=== PATIENT | male | born 1960 | race Caucasian/White ===

== ENCOUNTER → 2018-05-16 | Outpatient (CLI) | payer OTHER ==
[~2018-05-16] MED LIST: ADRENACLIC0.15 MG/0. IM; ADULT LOW DOSE81 MG PO; ALBUTEROL INHAL17 GM IH; ALBUTEROL2.5 MG/0.1 IH; AMLODIPINE BESY10 MG PO; AMOXICILLIN/POTASSIU PO; ASPIRIN81 M2 PO; AUGMENTIN 875875 MG PO; BENAZEPRIL HCL40 MG PO; BENAZEPRIL-HCT1 EA11 PO; COLACE100 MG PO; DALIRESP500 MCG PO; DIFLUCAN PO; FLAGYL500 MG PO; FLEXERIL PO; HYDROCHLOROTHIA25 M1 PO; HYDROCODONE-AP1 EAC6 PO; IBUPROFEN 200200 M1 PO; LEVAQUIN 500 M500 M2 PO; LEVAQUIN 500 M500 MG PO; LEVAQUIN PO; LOTREL 5-20 MG1 EACH PO; MECLIZINE HCL25 M1 PO; MUCINEX TA600 MG/TA1 PO; NAPROSYN500 MG PO; NICOTINE TRANSD21 M1 TD; NORCO 5-325 TA1 EACH PO; OMEPRAZOLE40 MG PO; PERCOCET 10-321 EACH PO; PERCOCET 5-3251 EACH PO; PERCOCET 7.5-31 EACH PO; PREDNISONE 10 M10 M1 PO; PROTONIX PO; PROTONIX40 M2 PO; SINGULAIR 10 MG10 M1 PO; SINGULAIR 10 MG10 MG PO; SYMBICORT; VISTARIL 25 MG25 M1 OR
[2018-05-16 08:46] LABS: ABSOLUTE BASOPHILS 0.1 thou/uL (0.0-0.2); ABSOLUTE LYMPHOCYTES 3.8 thou/uL (0.8-5.3); ABSOLUTE MONOCYTES 1.2 thou/uL (0.0-1.2); ABSOLUTE NEUTROPHILS 7.3 thou/uL (1.6-8.1); BASOPHILS 0.7 %; EOSINOPHILS 0.3 %; HEMATOCRIT 52.8 % (42.0-52.0); HEMOGLOBIN 17.9 gm/dL (14.0-18.0); LYMPHOCYTES 30.5 %; MCH 32.7 pg (26.0-34.0); MCHC 33.9 g/dL (28.0-37.0); MCV 96.2 fL (80.0-100.0); MONOCYTES 9.5 %; MPV 9.4 fl. (7.2-11.1); NUCLEATED RBCS 0 /100WBC; PLATELET COUNT* 199 thou/uL (150-400); RBC 5.49 mil/uL (4.50-6.00); RDW-CV 13.5 % (10.5-14.5); WBC 12.3 thou/uL (4.0-11.0)
[2018-05-16 09:02] LABS: ALBUMIN 4.1 g/dL (3.4-5.0); ALKALINE PHOSPHATASE 71 U/L (46-116); ANION GAP 7 mmol/L (7-16); BUN 13 mg/dL (7-18); CALCIUM 9.4 mg/dL (8.5-10.1); CHLORIDE 104 mmol/L (98-107); CHOLESTEROL 183 mg/dL (<200); CO2 30 mmol/L (21-32); CREATININE 1.2 mg/dL (0.6-1.3); GLUCOSE 104 mg/dL (70-99); HDL CHOLESTEROL 56 mg/dL (>40); LDL CHOLESTEROL 100 mg/dL (<100); POTASSIUM 4.1 mmol/L (3.5-5.1); SERUM ASSESSMENT Clear; SGOT 18 U/L (15-37); SGPT 23 U/L (30-65); SODIUM 141 mmol/L (136-145); TC:HDL 3.3 Ratio (Not establshd); TOTAL BILIRUBIN 1.1 mg/dL (<0.1-1.0); TOTAL PROTEIN 7.9 g/dL (6.4-8.2); TRIGLYCERIDE 135 mg/dL (<150); VLDL 27 mg/dL (<40)
[2018-05-17 02:08] LABS: GLYCOHEMOGLOBIN (HGB A1C) 5.3 % (4.8-5.6)
== END ==
LOC: M.LAB 08:29
PROVIDERS: Nurse Practitioner Family
DX: Z00.01 Encounter for general adult medical examination with abnormal findings (principal); I10 Essential (primary) hypertension; J18.9 Pneumonia, unspecified organism; N40.1 Benign prostatic hyperplasia with lower urinary tract symptoms; J44.1 Chronic obstructive pulmonary disease with (acute) exacerbation; J30.1 Allergic rhinitis due to pollen; R53.83 Other fatigue; R79.89 Other specified abnormal findings of blood chemistry; Z87.891 Personal history of nicotine dependence

== ENCOUNTER → 2018-11-07 | Outpatient (CLI) | payer OTHER ==
--- NOTE | 2018-11-07 12:49 | CARDNUC ---
[place] [address] CARDIAC NUCLEAR IMAGING REPORT Name: ANNMARIE MUNIZ Room: [facility]#: [id number] Admission: 11/07/18 Attend Phys: Marco A Hogan MD Discharge: Date of : 56 Date of Service: 11/07/18 1248 Report #: [id number] THIS REPORT FOR: //name// APPROVED REPORT Imaging Protocol: Rest Tc-99m/Stress Tc-99m 1 day Study performed: 11/07/2018 08:15:00 Indication: Abnormal EKG, Chest pain, Dyspnea Patient Location: Out-Patient Stress Tech: Sol Golden Stress Nurse: Bhavana Levy RN NM Tech:FAUSTINO Richmond Ht: 6 ft 2 in Wt: 246 lbs BSA: 2.37 m2 BMI: 31.58 Medical History Medical History: copd, hypertension, mi Medications: no cardiac meds Allergies: nkda Cardiac Risk Factors: age, hyperension, family hx Exercise History: Physically active Resting Data Rest SPECT myocardial perfusion imaging was performed in supine position 30 minutes following the intravenous injection of 11.0 mCi of Tc-99m Sestamibi. Time of rest injection: 819 Date: 11/07/2018 Time of rest imagin The images were gated to evaluate regional wall motion and calculate left ventricular ejection fraction. Administration Route: IV Administration Site: Left AC Pharmacologic Stress Pharmacologic stress test was performed by injecting Regadenoson 0.4 mg IV push over 10-15 seconds immediately followed by the intravenous injection of 34.0 mCi of Tc-99m Sestamibi. Time of stress injection: 0940 Time of stress imagin Administration Route: [place] [address] CARDIAC NUCLEAR IMAGING REPORT Name: ANNMARIE MUNIZ Room: [facility]#: [id number] Admission: 11/07/18 Attend Phys: Marco A Hogan MD Discharge: Date of : 56 Date of Service: 11/07/18 1248 Report #: [id number] Administration Site: Left AC Gated Stress SPECT was performed 40 minutes after stress injection. The images were gated to evaluate regional wall motion and calculate left ventricular ejection fraction. Prone imaging was performed. Stress Test Details Stress Test: Pharmacologic stress was paired with low level exercise. Reason for pharmacologic stress test: physical limitation. HR Max Heart Rate (APMHR): 160 bpm Resting HR: 66 bpm Target HR (85% APMHR): 136 bpm Max HR Achieved: 106 bpm % of APMHR: 66 Recovery HR: 77 bpm BP Resting BP: 140/99 mmHg Max BP: 211/94 mmHg Recovery BP: 153/84 mmHg ECG Resting ECG: Sinus Rhythm Stress ECG: Sinus Rhythm ST Change: None Arrhythmia: None Recovery ECG: Sinus Rhythm Recovery ST Change: None Recovery Arrhythmia: None Clinical Reason for Termination: Completed protocol Exercise duration: 0 min sec Exercise capacity: 1 METs The patient tolerated Lexiscan infusion without significant symptoms. Nurse Comments pt has bad hip and cannot exercise on the treadmill Stress ECG Conclusion Baseline 12-lead EKG showed sinus rhythm with no significant ST or T-wave abnormalities. EKGs obtained during and post Lexiscan infusion showed no significant ST or T wave changes when compared to baseline. There were no significant [place] [address] CARDIAC NUCLEAR IMAGING REPORT Name: ANNMARIE MUNIZ Room: [facility]#: [id number] Admission: 11/07/18 Attend Phys: Marco A Hogan MD Discharge: Date of : 56 Date of Service: 11/07/18 1248 Report #: [id number] Study Quality Study: Good Artifact: No artifact Study Data At rest, the left ventricular ejection fraction was 70%.. Post stress, the left ventricular ejection was 62%.. TID = 0.96. Perfusion There is a small in size severe intensity fixed defect noted in the basal portion of inferior wall. No other significant fixed or reversible defects are identified. Wall Motion The basal portion of the inferior wall is akinetic. The wall motion abnormalities were noted. 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 There were no reversible defects to suggest ongoing ischemia. Global LV systolic function is preserved. This is not a high risk study. <Conclusion> Baseline 12-lead EKG showed sinus rhythm with no significant ST or T-wave abnormalities. EKGs obtained during and post Lexiscan infusion showed no significant ST or T wave changes when compared to baseline. There were no significant stress-induced arrhythmias. <ELECTRONICALLY SIGNED> By: Mich Nicole MD, FACC 11/07/18 1248 1248 1248 Mich Nicole MD, FACC /INF
== END ==
LOC: M.NUC 10-20 16:10
DX: R94.31 Abnormal electrocardiogram [ECG] [EKG] (principal)

== ENCOUNTER 2018-11-28 08:39 | Observation (INO) | payer OTHER ==
[~2018-11-28] VITALS: Ht 185.4 cm; Wt 108.9 kg
[2018-11-28] VITALS (14 sets, daily range): BP systolic 149–188; BP diastolic 65–89
--- NOTE | ~2018-11-28 | H ---
[address] [address] HISTORY AND PHYSICAL Name: ANNMARIE MUNIZ Room: [address] M.RBlanca#: [id number] Admission: 11/28/18 Attend Phys: Marco A Hogan MD, F Discharge: 11/29/18 Date of : 56 Report #: [id number] THIS REPORT FOR: //name// Please refer to the History and Physical performed in the physician's office. By: 1058Medical Records Staff JOHNNIE /LIVIER
[~2018-11-28 08:39] MED LIST changes: -ALBUTEROL INHAL17 GM IH; +ALBUTEROL PO; +ASPIR 8181 MG PO; +COZAAR 50 MG TA50 M1 PO; +SPIRIVA INH; +SYMBICORT160 MCG/4. INH
[2018-11-28 09:23] LABS: HEMATOCRIT 44.1 % (42.0-52.0); HEMOGLOBIN 15.3 gm/dL (14.0-18.0); MCH 32.6 pg (26.0-34.0); MCHC 34.6 g/dL (28.0-37.0); MCV 94.2 fL (80.0-100.0); MPV 9.8 fl. (7.2-11.1); RBC 4.69 mil/uL (4.50-6.00); RDW-CV 13.4 % (10.5-14.5); WBC 10.8 thou/uL (4.0-11.0)
[2018-11-28 09:28] LABS: ANION GAP 11 mmol/L (7-16); BUN 10 mg/dL (7-18); CALCIUM 9.1 mg/dL (8.5-10.1); CHLORIDE 102 mmol/L (98-107); CO2 27 mmol/L (21-32); CREATININE 1.3 mg/dL (0.6-1.3); GLUCOSE 90 mg/dL (70-99); POTASSIUM 3.7 mmol/L (3.5-5.1); SODIUM 140 mmol/L (136-145)
[2018-11-28 09:29] LABS: APTT 29.5 Seconds (25.0-31.3); PROTIME 10.4 Seconds (9.20-11.50)
[2018-11-28 09:33] LABS: ALKALINE PHOSPHATASE 78 U/L (46-116); CHOLESTEROL 176 mg/dL (<200); HDL CHOLESTEROL 61 mg/dL (>40); LDL CHOLESTEROL 93 mg/dL (<100); SERUM ASSESSMENT Clear; SGOT 16 U/L (15-37); SGPT 26 U/L (30-65); TC:HDL 2.9 Ratio (Not establshd); TOTAL BILIRUBIN 0.7 mg/dL (<0.1-1.0); TOTAL PROTEIN 7.7 g/dL (6.4-8.2); TRIGLYCERIDE 113 mg/dL (<150); VLDL 23 mg/dL (<40)
--- NOTE | 2018-11-28 14:45 | NUR ---
PT TO ROOM 205 VIA CART. PT UP IN ROOM WITH STEADY GAIT. NO BLEEDING OR HEMATOMA OBSERVED AT RIGHT RADIAL CATH SITE. CALL LIGHT WITHIN REACH. IVF INFUSING
--- NOTE | 2018-11-28 14:53 | CARD ---
[address] [address] CARDIAC CATH REPORT Name: ANNMARIE MUNIZ Room: [address] Lb#: [id number] Admission: 11/28/18 Attend Phys: Marco A Hogan MD, F Discharge: Date of : 56 Report #: [id number] THIS REPORT FOR: //name// APPROVED REPORT Study performed: 11/28/2018 09:54:55 Patient Details Patient Status: Out-Patient Room #: The patient is a 58 year-old male Event Personnel Marco A Hogan Dot Net Developer, Kiersten Franklin RN Cabin Worker, Cortney Langley Monitor, Benedict Teague Scrub Procedures Performed NIKUNJ Place w/wo Plasty Single LAD , PTCA Single Vessel DIAG Indication Atypical chest pain , Positive stress test Risk Factors Arterial Hypertension, Tobacco History () Admission/Lab Medications/Medications given during procedure Glycoprotein IllbIlla Inhibitors, Heparin Unfract. Procedure Narrative The patient was brought electively to the Cardiac Catheterization Laboratory and was prepped and draped in a sterile manner. The right wrist was infiltrated with 1% Lidocaine subcutaneous anesthesia. A Slender Glidesheath sheath was inserted into the right radial artery. Coronary angiography was performed using coronary diagnostic catheters. The right coronary system was accessed and visualized with a Diagnostic JR4 catheter. The left coronary system was accessed and visualized with a Diagnostic JL4 catheter. The left ventricle was accessed and visualized with a Diagnostic Angled Pig catheter. Left ventricular/Aortic Valve gradient assessed via catheter pullback. Left ventriculogram was performed in SALAS projection. Closure device was deployed with a 6 Fr Vasc-Band Lng 27cm. The patient tolerated the procedure well and there were no complications associated with the procedure. [place] [address] CARDIAC CATH REPORT Name: ANNMARIE MUNIZ Room: [address] M.R.#: [id number] Admission: 11/28/18 Attend Phys: Marco A Hogan MD, F Discharge: Date of : 56 Report #: [id number] Intraoperative Conscious Sedation Sedation start time: 10:45 Case end Time: 11:38 Fentanyl 25 mcg Versed 3 mg Fluoro Time: 5.8 minutes Dose: DAP 21802 cGycm2 1570 mGy Contrast Type and Amount: Visipaque 190 ml Coronary Angiography The patient's coronary anatomy is right dominant. Diagnostic Cath Left Main 0% stenosis LAD 70% proximal, and 50% mid stenosis noted Diagonal 1 50% ostial and 50% mid stenosis noted OM1 50% mid stenosis noted Right Coronary chronically occluded proximally and filled by collaterals Left Ventriculography The left ventricular ejection fraction is estimated to be 50-55%. Left ventricular wall motion abnormalities are present. There is no mitral insufficiency. akinesis noted of base of inferior wall Hemodynamics The aortic pressure is 134/77 mmHg with a mean of 101 mmHg. The left ventricular pressure is 161/10 mmHg with a mean of mmHg. The left ventricular end diastolic pressure is 20 mmHg. There was no gradient across the aortic valve upon pullback. Pullback from the left ventricle to the aorta revealed no gradient across the aortic valve. PCI Technique Lesion Anticoagulation was achieved with Heparin. bolus of iv aggrastat given Percutaneous coronary intervention was performed on the proximal left anterior descending artery segment. The lesion stenosis prior to intervention was 70% with LUPIS 3 flow. A 6F XB LAD 3.5 Guide Catheter was used to engage the ostium. A BMW 190cm Interventional Guidewire was used to cross the lesion. STENT DEPLOYMENT A drug-eluting stent Xience Sherrie 2.63U07tg was inserted and inflated up to 8.00atm for 13seconds. Repeat angiography revealed the following post-stent deployment results: 0% [place] [address] CARDIAC CATH REPORT Name: ANNMARIE MUNIZ Room: [address]#: [id number] Admission: 11/28/18 Attend Phys: Marco A Hogan MD, F Discharge: Date of : 56 Report #: [id number] Inflation: 16.00atm for 15seconds. Additional Inflation: 19.00atm for 13seconds. After primary stenting of the proximal lad, the 50% stenosis of the ostium of the first diagonal branch whose ostium was covered by the stent, was noted to be 80% narrowed secondary to plaque shift. Final angiography reveals 0 % stenosis with LUPIS 3 flow. PCI Technique Lesion 2 Percutaneous Coronary Intervention was performed on the first diagnonal branch segment. Percutaneous coronary intervention was performed on the first diagonal branch segment. The lesion stenosis prior to intervention was 80% with LUPIS 3 flow. A xblad3.5 Guide Catheter was used to engage the lm ostium. A BMW 190cm Interventional Guidewire was used to cross the lesion. Balloon Dilation A Balloon catheter Trek RX 2.25 X 8 was inserted and inflated up to 12.00atm for 12seconds. Repeat angiography revealed the following post-dilatation results: 30% stenosis. Additional Inflation: 16.00atm for 10seconds. Additional Inflation: 20.00atm for 10seconds. Final angiography reveals 30 % stenosis with LUPIS 3 flow. Conclusion 1. 70% proximal stenosis of the lad 2. chronic occlusion of the rca that filled by collaterals 3. left ventricular efection fraction of 50-55% 4. successful placement of a drug eluting stent in the proximal lad 5. following stenting there was plaque shift into the first diagonal branch treated by PTCA of the diagonal ostium by placing the balloon through a stent strut into the diagonal artery Recommendations Cardiac Rehabilitation Referral Aggressive Medical Therapy Medications Administered Clopidogrel <ELECTRONICALLY SIGNED> By: Marco A Hogan MD, [facility] 11/28/18 1453 1453 1453Davicalvin Hogan MD, FAC /INF
--- NOTE | 2018-11-28 16:29 | EKG ---
[place] [address] ELECTROCARDIOGRAM REPORT Name: ANNMARIE MUNIZ Room: [address] M.R.#: [id number] Admission: 11/28/18 Attend Phys: Marco A Hogan MD, F Discharge: Date of : 56 Report #: [id number] THIS REPORT FOR: //name// [facility] Test Date: 2018-11-28 Test Time: 09:09:20 Pat Name: ANNMARIE MUNIZ Department: Room: [facility] Gender: M Ob Gyn: : 1960 Requested By: Marco A Hogan Order Number: [id number] Kiran MD: Marco A Hogan Measurements Intervals [place] Rate: 71 P: 26 NE: 150 QRS: 17 QRSD: 98 T: 21 QT: 389 QTc: 423 Interpretive Statements Sinus rhythm Atrial premature complex Inferior infarct, old Compared to ECG 07/29/2015 16:11:25 Atrial premature complex(es) now present Sinus bradycardia no longer present Electronically Signed On 11-28-2018 16:29:46 HEAD GOLF PROFESSIONAL by Marco A Hogan [email or web address] <ELECTRONICALLY SIGNED> By: Marco A Hogan MD, FACC 11/28/18 1629 0909 0909 Marco A Hogan MD, [facility] /EPI
[2018-11-29] VITALS: BP 118/76
--- NOTE | 2018-11-29 00:30 | NUR ---
PM ASSESSMENT COMPLETED, REFER TO CHARTING. VSS. TRACING SR WITH 1ST DEGREE ON MONITOR. PT IS UP ADLIB, STEADY GAIT. DENIES PAIN. PT CAN BE IRRITABLE AT TIMES. IVF INFUSING ORDERED. HOURLY ROUNDING FOR PT SAFETY. CLWR.
[2018-11-29 04:00] VITALS: BP 142/80
[2018-11-29 04:50] LABS: HEMOGLOBIN 14.2 gm/dL (14.0-18.0); MCH 32.5 pg (26.0-34.0); MCHC 34.7 g/dL (28.0-37.0); MCV 93.8 fL (80.0-100.0); MPV 9.8 fl. (7.2-11.1); RBC 4.37 mil/uL (4.50-6.00); RDW-CV 13.2 % (10.5-14.5); WBC 9.1 thou/uL (4.0-11.0)
[2018-11-29 04:58] LABS: CALCIUM 8.6 mg/dL (8.5-10.1); CREATININE 1.1 mg/dL (0.6-1.3)
[2018-11-29 08:20] VITALS: BP 144/75
[2018-11-29] MEDS ORDERED: NITROSTAT0.4 MG SUBLING (09:44)
[2018-11-29] MEDS ORDERED: PLAVIX 75 MG TA75 M1 PO (09:48)
--- NOTE | 2018-11-29 10:07 | NUR ---
ASSUMED CARE OF PT THIS AM AROUND 0715- BATT PACKER IN PLACE ORDERED, TRACING SR- PT A&O X4- AND ANXIOUS TO BE D/C'D THIS AM- RIGHT WRIST C/D/I WITH BAND-AIDE TO SITE WITH NO HEMATOMA NOTED- PT DENIES ANY C/O PAIN/DISCOMFORT- CARDIOLOGY HERE TO ASSESS WITH ORDERS NOTED FOR OKAY TO D/C HOME THIS SHIFT- IV TO RIGHT FA D/C'D ALONG WITH BATT PACKER PRIOR TO D/C- D/C EDUCATION/TEACHING GIVEN TO PT PRIOR TO D/C WITH ALL QUESTIONS AND CONCERNS ADDRESSED- WRITTEN EDUCATION ALONG WITH PRESCRIPTIONS PROVIDED TO PT PRIOR TO D/C- BELONGINGS PACKED AND ACCOUNTED FOR PER PT- PT ESCORTED PER TECH VIA AMBULATION TO VEHICLE AT 1005 WITH BELONGINGS- NO PROBLEMS NOTED AT TIME OF D/C
--- NOTE | 2018-12-01 10:57 | EKG ---
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 : 1960 Requested By: Marco A Hogan Order Number: [id number] Kiran MD: Bsuter Hanson Measurements Intervals [place] Rate: 67 P: 40 PA: 153 QRS: 29 QRSD: 101 T: 24 QT: 391 QTc: 413 Interpretive Statements Sinus rhythm Multiple premature complexes, supraventricular Probable inferior infarct, old Electronically Signed On 12-01-2018 10:57:33 BARREL LINE OPERATOR by Buster Hanson [email or web address] <ELECTRONICALLY SIGNED> By: Buster Hanson MD, [facility] 12/01/18 1057 1418 1418 Buster Hanson MD, FACC /EPI
--- NOTE | 2018-12-01 11:00 | EKG ---
[place] [address] ELECTROCARDIOGRAM REPORT Name: ANNMARIE MUNIZ Room: [address] M.R.#: [id number] Admission: 11/28/18 Attend Phys: Marco A Hogan MD, F Discharge: 11/29/18 Date of : 56 Report #: [id number] THIS REPORT FOR: //name// [facility] Test Date: 2018-11-29 Test Time: 08:03:21 Pat Name: ANNMARIE MUNIZ Department: Room: [address] Gender: M Partnership Development Manager: : 1960 Requested By: Marco A Hogan Order Number: [id number] Kiran MD: Buster Hanson Measurements Intervals [place] Rate: 58 P: 44 CT: 149 QRS: 29 QRSD: 101 T: 25 QT: 406 QTc: 399 Interpretive Statements Sinus rhythm Multiple supraventricular premature complexes Probable inferior infarct, old Compared to ECG 11/28/2018 09:09:20 Atrial premature complex(es) persist Myocardial infarct finding still present Electronically Signed On 12-01-2018 11:00:08 MARKETING PRODUCTION MANAGER by Buster Hanson [email or web address] <ELECTRONICALLY SIGNED> By: Buster Hanson MD, FAC 12/01/18 1100 0803 0803 Buster Hanson MD, [facility] /EPI
--- NOTE | 2018-12-03 13:35 | D ---
[address] [address] DISCHARGE SUMMARY Name: ANNMARIE MUNIZ Room: [address] Jessica Asher#: [id number] Admission: 11/28/18 Attend Phys: Marco A Hogan MD, F Discharge: 11/29/18 Date of : 56 Report #: [id number] THIS REPORT FOR: //name// CC: Marco A Miller DO DATE OF SERVICE: 11/29/2018 DISCHARGE DIAGNOSES: 1. Angina pectoris. 2. Coronary artery disease. 3. Hypertension. 4. Tobacco abuse. CONSULTANTS: None. PROCEDURES: Left heart catheterization with placement of a single drug-eluting stent in the proximal left anterior descending artery followed by balloon angioplasty of the diagonal branch via the radial approach. HISTORY OF PRESENT ILLNESS: The patient is a 58-year-old white male who was brought to the outpatient department to undergo cardiac catheterization. The patient recently complained of chest pain, it is a constant pain. It is not related to exertion or meals. He denied any trauma to his chest. It is not related to food. He does note exertional dyspnea, but denies any syncope. I saw him in the clinic in October, eh was noted to have an abnormal ECG. He underwent a nuclear stress test that showed evidence of previous infarction consistent with a scar, but no significant ischemia. Because of his complaints of chest pain and abnormal Cardiolite, I recommended cardiac catheterization. Ejection fraction by nuclear stress test was 62%. PAST MEDICAL HISTORY: He has had no significant surgical procedures. He does have a history of hypertension and previous tobacco abuse. MEDICATIONS: On admission included albuterol inhaler, omeprazole and aspirin a day. PHYSICAL EXAMINATION: GENERAL: Middle-aged male. VITAL SIGNS: Blood pressure 140/70, pulse 60. CHEST: Clear to auscultation. CARDIAC: Regular rate and rhythm. ABDOMEN: Soft. EXTREMITIES: No edema. SKIN: [place] [address] DISCHARGE SUMMARY Name: ANNMARIE MUNIZ Room: [address]#: [id number] Admission: 11/28/18 Attend Phys: Marco A Hogan MD, F Discharge: 11/29/18 Date of : 56 Report #: [id number] NEUROLOGIC: Nonfocal. ECG showed evidence of previous inferior infarction. LABORATORY DATA: Previous lab work included cholesterol 185, triglyceride 135, HDL 45, hemoglobin 19. HOSPITAL COURSE: The patient was brought to the outpatient department. I performed cardiac catheterization from the right radial artery. Left ventriculogram showed akinesis of the base of the inferior wall with an estimated ejection fraction of 50-55%. He was noted to have a 70% narrowing of the proximal LAD at the takeoff of the first diagonal branch. The right coronary artery appeared chronically occluded, filled by collaterals. He was given heparin. I then placed a single drug-eluting stent in the proximal LAD. After placing the stent there appeared to be compromise of the ostium of the diagonal branch that now arose from within the stent. I performed balloon angioplasty of the ostium. He tolerated the procedure well. He was loaded with Plavix. Fortunately, he had no further chest pain, arrhythmias or heart failure. The patient remained in sinus rhythm. Lab work included a creatinine of 1.1, potassium was 4.0. His cholesterol was 176, triglyceride 113, HDL 61, LDL 93. The following day, his white blood cell count was 9.1, hemoglobin 14.2, and there was no drop in platelet count. The patient was discharged the following day on his home medications including albuterol inhaler, omeprazole, and Spiriva inhaler. He was started on aspirin 81 mg a day, Plavix 75 mg a day, Lipitor 40 mg a day and he was given nitroglycerin to take as needed for chest pain. He was discharged to return to care of Dr. Miller for routine medical care. I did recommend he start an exercise program, maintain a low-fat diet. He was scheduled to return to see me in the Cardiology Clinic in 6 weeks for followup. At the time of discharge, there was no significant hematoma in the right wrist. <ELECTRONICALLY SIGNED> By: Marco A Hogan MD, FACC 12/03/18 1335 1241 1302Dedin Hogan MD, FACC /nt
== END 2018-11-29 10:05 | disposition home or self-care (01) ==
LOC: M.CL 08:39 → M.TBA-CV 14:15 → M.2W 14:36
PROVIDERS: ADMIT Internal Medicine Cardiovascular Disease
DX: I25.119 Atherosclerotic heart disease of native coronary artery with unspecified angina pectoris (principal); I10 Essential (primary) hypertension; F17.201 Nicotine dependence, unspecified, in remission; R94.31 Abnormal electrocardiogram [ECG] [EKG]; Z79.899 Other long term (current) drug therapy

== ENCOUNTER 2019-01-12 13:21 | Inpatient (IN) | payer OTHER ==
[~2019-01-12] VITALS: Ht 185.4 cm; Wt 107.0 kg
[~2019-01-12 13:21] MED LIST changes: +NITROSTAT0.4 MG SUBLING; +PLAVIX 75 MG TA75 M1 PO
[2019-01-12 13:30] VITALS: BP 230/121
[2019-01-12 14:27] LABS: ABSOLUTE BASOPHILS 0.1 thou/uL (0.0-0.2); ABSOLUTE EOSINOPHILS 0.2 thou/uL (0.0-0.7); ABSOLUTE LYMPHOCYTES 2.5 thou/uL (0.8-5.3); ABSOLUTE MONOCYTES 0.9 thou/uL (0.0-1.2); BASOPHILS 1.2 %; EOSINOPHILS 1.8 %; HEMATOCRIT 46.3 % (42.0-52.0); HEMOGLOBIN 15.9 gm/dL (14.0-18.0); LYMPHOCYTES 25.9 %; MCH 32.8 pg (26.0-34.0); MCHC 34.3 g/dL (28.0-37.0); MCV 95.6 fL (80.0-100.0); MONOCYTES 9.7 %; MPV 9.8 fl. (7.2-11.1); NUCLEATED RBCS 0 /100WBC; PLATELET COUNT* 168 thou/uL (150-400); POLYS 61.4 %; RBC 4.84 mil/uL (4.50-6.00); RDW-CV 13.6 % (10.5-14.5); WBC 9.8 thou/uL (4.0-11.0)
[2019-01-12 14:35] LABS: PROTIME 10.6 Seconds (9.20-11.50)
[2019-01-12 14:43] LABS: ANION GAP 10 mmol/L (7-16); BUN 6 mg/dL (7-18); CALCIUM 8.9 mg/dL (8.5-10.1); CHLORIDE 106 mmol/L (98-107); CO2 27 mmol/L (21-32); CREATININE 1.1 mg/dL (0.6-1.3); GLUCOSE 106 mg/dL (70-99); POTASSIUM 3.9 mmol/L (3.5-5.1); SODIUM 143 mmol/L (136-145); TROPONIN-I LEVEL <0.06 ng/mL (<0.06)
[2019-01-12 14:46] LABS: ALBUMIN 3.7 g/dL (3.4-5.0); ALKALINE PHOSPHATASE 67 U/L (46-116); LIPASE 61 U/L (73-393); NT-PRO BRAIN NAT PEPTIDE 216 pg/mL (<300); SGOT 14 U/L (15-37); SGPT 22 U/L (30-65); TOTAL BILIRUBIN 0.6 mg/dL (<0.1-1.0); TOTAL PROTEIN 7.3 g/dL (6.4-8.2)
[2019-01-12 20:07] VITALS: BP 146/83
[2019-01-12 20:20] VITALS: BP 161/88
[2019-01-13] VITALS: BP 139/83
[2019-01-13 04:00] VITALS: BP 125/65
[2019-01-13 08:10] VITALS: BP 140/82
--- NOTE | 2019-01-13 10:04 | EKG ---
[place] [address] ELECTROCARDIOGRAM REPORT Name: ANNMARIE MUNIZ Room: [address] ADM IN .R.#: [id number] Admission: 01/12/19 Attend Phys: Mihir Alvarez MD Discharge: Date of : 56 Report #: [id number] THIS REPORT FOR: //name// [facility] ED Test Date: 2019-01-12 Test Time: 13:26:46 Pat Name: ANNMARIE MUNIZ Department: Room: 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 /EPI
[2019-01-13 12:46] VITALS: BP 161/85
[2019-01-13 17:36] VITALS: BP 158/58
[2019-01-13 20:00] VITALS: BP 167/81
[2019-01-14] VITALS (18 sets, daily range): BP systolic 105–192; BP diastolic 51–92
[2019-01-14 05:54] LABS: CALCIUM 9.3 mg/dL (8.5-10.1); CREATININE 1.1 mg/dL (0.6-1.3); MAGNESIUM 1.9 mg/dL (1.8-2.4); POTASSIUM 4.7 mmol/L (3.5-5.1)
[2019-01-14 11:03] LABS: CHOLESTEROL 169 mg/dL (<200); HDL CHOLESTEROL 51 mg/dL (>40); LDL CHOLESTEROL 101 mg/dL (<100); TC:HDL 3.3 Ratio (Not establshd); TRIGLYCERIDE 87 mg/dL (<150); VLDL 17 mg/dL (<40)
[2019-01-14 11:25] LABS: SERUM ASSESSMENT Clear
--- NOTE | 2019-01-14 16:04 | EKG ---
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: : 1960 Requested By: Buster Hanson Order Number: [id number] Kiran MD: Buster Hanson Measurements Intervals [place] Rate: 61 P: 45 MO: 141 QRS: 21 QRSD: 98 T: 24 QT: 415 QTc: 418 Interpretive Statements Sinus rhythm Abnormal R-wave progression, early transition Inferior infarct, old Compared to ECG 01/12/2019 13:26:46 No significant changes Electronically Signed On 01-14-2019 16:03:53 CDT by Buster Hanson [email or web address] <ELECTRONICALLY SIGNED> By: Buster Hanson MD, [facility] 01/14/19 1603 1303 1303 Buster Hanson MD, [facility] /EPI
[2019-01-15] VITALS (7 sets, daily range): BP systolic 108–159; BP diastolic 55–84
[2019-01-15 05:14] LABS: HEMATOCRIT 46.2 % (42.0-52.0); HEMOGLOBIN 15.8 gm/dL (14.0-18.0); MCH 33.3 pg (26.0-34.0); MCHC 34.3 g/dL (28.0-37.0); MCV 97.2 fL (80.0-100.0); MPV 9.2 fl. (7.2-11.1); RBC 4.75 mil/uL (4.50-6.00); RDW-CV 13.6 % (10.5-14.5); WBC 9.5 thou/uL (4.0-11.0)
[2019-01-15 05:31] LABS: ALBUMIN 3.3 g/dL (3.4-5.0); ALKALINE PHOSPHATASE 93 U/L (46-116); ANION GAP 8 mmol/L (7-16); BUN 9 mg/dL (7-18); CHLORIDE 108 mmol/L (98-107); CO2 27 mmol/L (21-32); CREATININE 1.2 mg/dL (0.6-1.3); GLUCOSE 119 mg/dL (70-99); POTASSIUM 4.9 mmol/L (3.5-5.1); SGOT 44 U/L (15-37); SGPT 47 U/L (30-65); SODIUM 143 mmol/L (136-145); TOTAL BILIRUBIN 0.9 mg/dL (<0.1-1.0); TOTAL PROTEIN 6.8 g/dL (6.4-8.2); TROPONIN-I LEVEL <0.06 ng/mL (<0.06)
[2019-01-15] MEDS ORDERED: NORVASC5 MG PO ×2 (09:53→11:19)
[2019-01-15] MEDS ORDERED: ATORVASTATIN CA20 MG PO (11:20)
--- NOTE | 2019-01-15 17:05 | EKG ---
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
--- NOTE | 2019-01-16 14:45 | CARD ---
[address] [address] CARDIAC CATH REPORT Name: ANNMARIE MUNIZ Room: [address] IN [facility]#: [id number] Admission: 01/12/19 Attend Phys: Mihir Alvarez MD Discharge: 01/15/19 Date of : 56 Report #: [id number] THIS REPORT FOR: //name// APPROVED REPORT Study performed: 01/14/2019 10:34:40 Patient Details Patient Status: In-Patient Room #: The patient is a 58 year-old male Event Personnel Buster Hanson Dowel Inserting Machine Operator, Khadijah Huitron RN Channel Program Manager/Monitor, Benedict Teague NUCLEAR POWERPLANT MECHANIC Monitor, Tunde Francois NUCLEAR POWERPLANT MECHANIC Scrub Procedures Performed Art Access - R femoral artery* Left Heart Cath w/or w/o Coronaries NIKUNJ Place w/wo Plasty Single CIRC Hemostasis w/ Angioseal Indication Unstable angina Risk Factors Hypercholesterolemia, Hypertension Previous Procedures/Diagnoses Previous PCI Procedure Narrative The patient was brought electively to the Cardiac Catheterization Laboratory and was prepped and draped in a sterile manner. The right femoral was infiltrated with 2% Lidocaine subcutaneous anesthesia. A [place] 6 FR sheath was inserted into the right femoral artery. Coronary angiography was performed using coronary diagnostic catheters. The right coronary system was accessed and visualized with a 6Fr JR4 catheter. The left coronary system was accessed and visualized with a 6Fr JL4 catheter. The left ventricle was accessed and visualized with a 6Fr PIG catheter. Left ventricular/Aortic Valve gradient assessed via catheter pullback. Pre-demployment femoral angiogram was performed . The patient tolerated the procedure well and there were no complications associated with the procedure. There was no hematoma. Intra[place] [id number] CARDIAC CATH REPORT Name: CRISTYANNMARIE EMILY Room: [address]#: [id number] Admission: 01/12/19 Attend Phys: Mihir Alvarez MD Discharge: 01/15/19 Date of : 56 Report #: [id number] Sedation start time: 11:23 Case end Time: 12:11 Fentanyl 125 mcg Versed 5 mg Fluoro Time: 11.6 minutes Dose: DAP 651810 cGycm2 1979.3 mGy Contrast Type and Amount: Visipaque 300 ml Diagnostic Cath Left Main 0% narrowing LAD Widely patent proximal LAD stent with 50% ostial first diagonal narrowing Circumflex Nondominant circumflex with 80% mid vessel stenosis Right Coronary Dominant vessel which is totally occluded proximally with [id number] collaterals filling the distal right coronary artery Left Ventriculography The left ventricle is normal in size with normal contractility. The left ventricular ejection fraction is estimated to be 60%. Left ventricular wall motion abnormalities are not present. There is no mitral insufficiency. Hemodynamics The aortic pressure is 166/81 mmHg with a mean of 114 mmHg. The left ventricular pressure is 166/6 mmHg with a mean of mmHg. The left ventricular end diastolic pressure is 17 mmHg. PCI Technique Lesion Anticoagulation was achieved with Angiomax. Patient was preloaded with Angiomax IV 17 ml. Percutaneous coronary intervention was performed on the mid circumflex artery segment. The lesion stenosis prior to intervention was 80% with LUPIS 3 flow. A 6F XB LAD 3.5 Guide Catheter was used to engage the ostium. A IG: BMW 190cm Interventional Guidewire was used to cross the lesion. BALLOON DILATION A Balloon catheter NC Trek RX 2.5 X 12 was inserted and inflated up to 16.00atm for 15seconds. Additional Inflation: 18.00atm for 12seconds. STENT DEPLOYMENT A drug-eluting stent Xience Sherrie 2.80R97za was inserted and inflated up to 12.00atm for 15seconds. Additional Inflation: 16.00atm for 10seconds. Additional Inflation: 17.00atm [place] 11[place]. [place] [id number] CARDIAC CATH REPORT Name: CRISTYANNMARIE DIAZ Room: [address] M.R.#: [id number] Admission: 01/12/19 Attend Phys: Mihir Alvarez MD Discharge: 01/15/19 Date of : 56 Report #: [id number] POST STENT DEPLOYMENT BALLOON DILATION A Balloon catheter NC Trek RX 3.0 X 8 was inserted and inflated up to 16.00atm for 12seconds. Additional Inflation: 18.00atm for 12seconds. Final angiography reveals 10 % stenosis with LUPIS 3 flow. Conclusion 1 significant coronary artery disease characterized by the following: A widely patent proximal LAD stent with 50% ostial first diagonal narrowing B 80% stenosis of the midportion of the nondominant circumflex C 100% proximal occlusion of the dominant right coronary artery with [id number] collaterals filling the distal right coronary artery #2 normal global left ventricular systolic function with ejection fraction being 60% #3 moderate systemic systolic hypertension with modest elevation of left ventricular end-diastolic pressure #4 successful percutaneous coronary intervention with deployment of a drug-eluting at the site of 80% mid circumflex stenosis with 10% residual narrowing and LUPIS 3 flow to the distal vessel Recommendations Cardiac Risk Reduction Program Aggressive Medical Therapy Medications Administered Aspirin (any) Clopidogrel Diagnostic Cath Approved by: Buster Hanson MD Date/Time: 01/16/2019 14:44:27 <ELECTRONICALLY SIGNED> By: Buster Hanson MD, [facility] 01/16/19 1444 1444 1444Buster Hanson MD, FACC /INF
== END 2019-01-15 11:59 | disposition home or self-care (01) | DRG 247 ==
LOC: M.ERS 13:21 → M.TBA-ER 16:21 → M.2W 16:21
PROVIDERS: Internal Medicine; Personal Emergency Response Attendant; Registered Nurse; ADMIT Family Medicine
DX: I25.110 Atherosclerotic heart disease of native coronary artery with unstable angina pectoris (principal); I16.1 Hypertensive emergency; J44.9 Chronic obstructive pulmonary disease, unspecified; I16.0 Hypertensive urgency; N18.2 Chronic kidney disease, stage 2 (mild); E78.5 Hyperlipidemia, unspecified; I12.9 Hypertensive chronic kidney disease with stage 1 through stage 4 chronic kidney disease, or unspecified chronic kidney disease; K21.9 Gastro-esophageal reflux disease without esophagitis; I25.2 Old myocardial infarction; Z95.5 Presence of coronary angioplasty implant and graft; Z79.82 Long term (current) use of aspirin; Z79.899 Other long term (current) drug therapy; Z87.891 Personal history of nicotine dependence

== ENCOUNTER 2019-07-31 18:28 | Emergency (ER) | payer OTHER ==
[~2019-07-31] VITALS: Ht 188 cm; Wt 107.5 kg
[~2019-07-31 18:28] MED LIST changes: +ATORVASTATIN CA20 MG PO; +NORVASC5 MG PO
[2019-07-31 18:50] LABS: ABSOLUTE BASOPHILS 0.2 thou/uL (0.0-0.2); ABSOLUTE EOSINOPHILS 0.3 thou/uL (0.0-0.7); ABSOLUTE LYMPHOCYTES 3.2 thou/uL (0.8-5.3); ABSOLUTE MONOCYTES 1.2 thou/uL (0.0-1.2); ABSOLUTE NEUTROPHILS 8.5 thou/uL (1.6-8.1); BASOPHILS 1.2 %; EOSINOPHILS 2.2 %; HEMOGLOBIN 14.5 gm/dL (14.0-18.0); LYMPHOCYTES 23.8 %; MCHC 35.3 g/dL (28.0-37.0); MCV 90.6 fL (80.0-100.0); MONOCYTES 9.1 %; MPV 8.7 fl. (7.2-11.1); NUCLEATED RBCS 0 /100WBC; PLATELET COUNT* 301 thou/uL (150-400); POLYS 63.7 %; RBC 4.53 mil/uL (4.50-6.00); RDW-CV 12.6 % (10.5-14.5); WBC 13.4 thou/uL (4.0-11.0)
[2019-07-31 18:58] LABS: CALCIUM 9.5 mg/dL (8.5-10.1); CREATININE 1.4 mg/dL (0.6-1.3); POTASSIUM 3.7 mmol/L (3.5-5.1)
[2019-07-31 19:09] LABS: TOTAL BILIRUBIN 0.8 mg/dL (<0.1-1.0); TOTAL PROTEIN 7.7 g/dL (6.4-8.2)
[2019-07-31 21:45] VITALS: BP 123/84
--- NOTE | 2019-08-01 14:28 | EKG ---
[place] [address] ELECTROCARDIOGRAM REPORT Name: CRISTYANNMARIE Room: [facility]#: [id number] Admission: 07/31/19 Attend Phys: Discharge: 07/31/19 Date of : 56 Report #: [id number] THIS REPORT FOR: //name// [facility] ED Test Date: 2019-07-31 Test Time: 18:32:28 Pat Name: ANNMARIE MUNIZ Department: Room: Gender: M Waste Management Engineer: WILLY : 1960 Requested By: Alyssia Mejias Order Number: [id number] MD: Mich Nicole Measurements Intervals [place] Rate: 63 P: 75 NE: 136 QRS: 41 QRSD: 107 T: 53 QT: 396 QTc: 406 Interpretive Statements Sinus rhythm Abnormal R-wave progression, early transition Inferior infarct, old Baseline wander in lead(s) I,III,aVR,aVL,aVF,V3 Compared to ECG 01/15/2019 04:46:04 No significant changes Electronically Signed On 08-01-2019 14:28:01 CDT by Mich Nicole [email or web address] <ELECTRONICALLY SIGNED> By: Mich Nicole MD, FACC 08/01/19 [phone] Mich Nicole MD, FACC /EPI
== END 2019-07-31 21:47 | disposition home or self-care (01) ==
LOC: M.ERS 18:28
PROVIDERS: Personal Emergency Response Attendant
DX: R07.89 Other chest pain (principal); J44.9 Chronic obstructive pulmonary disease, unspecified; I10 Essential (primary) hypertension; K21.9 Gastro-esophageal reflux disease without esophagitis; F17.210 Nicotine dependence, cigarettes, uncomplicated

== ENCOUNTER 2020-06-16 11:16 | Observation (INO) | payer OTHER ==
[~2020-06-16] VITALS: Ht 185.4 cm; Wt 108.9 kg
[2020-06-16 11:20] VITALS: BP 112/70
[2020-06-16] MEDS ORDERED: METOPROLOL SUCC25 M1 PO (11:27)
[2020-06-16] MEDS ORDERED: HYDROCHLOROTHIA25 M2 PO (11:27)
[2020-06-16] MEDS ORDERED: NORVASC10 MG PO (11:28)
[2020-06-16] MEDS ORDERED: LIPITOR40 MG PO (11:28)
[2020-06-16] MEDS ORDERED: SINGULAIR 10 MG10 MG PO (11:29)
[2020-06-16 11:35] LABS: ABSOLUTE BASOPHILS 0.1 thou/uL (0.0-0.2); ABSOLUTE EOSINOPHILS 0.2 thou/uL (0.0-0.7); ABSOLUTE LYMPHOCYTES 3.2 thou/uL (0.8-5.3); ABSOLUTE NEUTROPHILS 7.6 thou/uL (1.6-8.1); BASOPHILS 0.9 %; EOSINOPHILS 1.7 %; HEMATOCRIT 45.1 % (42.0-52.0); HEMOGLOBIN 15.8 gm/dL (14.0-18.0); LYMPHOCYTES 26.4 %; MCH 32.2 pg (26.0-34.0); MCHC 35.1 g/dL (28.0-37.0); MCV 91.9 fL (80.0-100.0); MONOCYTES 8.4 %; MPV 8.7 fl. (7.2-11.1); NUCLEATED RBCS 0 /100WBC; PLATELET COUNT* 299 thou/uL (150-400); POLYS 62.6 %; RBC 4.91 mil/uL (4.50-6.00); RDW-CV 12.7 % (10.5-14.5); WBC 12.2 thou/uL (4.0-11.0)
[2020-06-16 11:43] LABS: CALCIUM 8.6 mg/dL (8.5-10.1); CREATININE 1.2 mg/dL (0.6-1.3); POTASSIUM 3.7 mmol/L (3.5-5.1)
[2020-06-16 11:47] LABS: ALBUMIN 4.2 g/dL (3.4-5.0); TOTAL BILIRUBIN 0.9 mg/dL (<0.1-1.0)
[2020-06-16 14:17] VITALS: BP 129/69
[2020-06-16 16:56] VITALS: BP 146/67
[2020-06-16 19:20] VITALS: BP 141/77
[2020-06-17] VITALS: BP 118/57
[2020-06-17 04:00] VITALS: BP 115/68
[2020-06-17 05:21] LABS: CHOLESTEROL 119 mg/dL (<200); HDL CHOLESTEROL 43 mg/dL (>40); LDL CHOLESTEROL 57 mg/dL (<100); TC:HDL 2.8 Ratio (Not establshd); TRIGLYCERIDE 98 mg/dL (<150); VLDL 20 mg/dL (<40)
[2020-06-17 05:28] LABS: SERUM ASSESSMENT CLEAR
[2020-06-17 07:40] VITALS: BP 135/72
--- NOTE | 2020-06-17 09:32 | EKG ---
[place] [address] ELECTROCARDIOGRAM REPORT Name: ANNMARIE MUNIZ Room: [address] M.R.#: [id number] Admission: 06/16/20 Attend Phys: Benedict Madrigal, Discharge: Date of : 56 Date of Service: 06/16/20 1124 Report #: [id number] THIS REPORT FOR: //name// [facility] ED Test Date: 2020-06-16 Test Time: 11:24:31 Pat Name: ANNMARIE MUNIZ Department: Room: [facility] Gender: M Retail Route Supervisor: ELIJAH : 1960 Requested By: Alyssia Mejias Order Number: [id number] MD: Buster Hanson Measurements Intervals [place] Rate: 64 P: 79 ND: 155 QRS: 40 QRSD: 98 T: 28 QT: 414 QTc: 427 Interpretive Statements Sinus rhythm Abnormal R-wave progression, early transition Possible inferior wall scar Compared to ECG 07/31/2019 18:32:28 No significant changes Electronically Signed On 06-17-2020 9:32:05 CDT by Buster Hanson [email or web address] <ELECTRONICALLY SIGNED> By: Buster Hanson MD, [facility] 06/17/20 0932 1124 1124 Buster Hanson MD, [facility] /EPI
[2020-06-17] MEDS ORDERED: IMDUR 30 MG TAB30 M1 PO (10:15)
[2020-06-17 10:40] VITALS: BP 135/72
[2020-06-17 11:05] VITALS: BP 135/72
== END 2020-06-17 11:05 | disposition home or self-care (01) ==
LOC: M.ERS 11:16 → M.TBA-ER 12:48 → M.2W 14:27
PROVIDERS: Personal Emergency Response Attendant; ADMIT Internal Medicine; ATTEND Internal Medicine
DX: I25.110 Atherosclerotic heart disease of native coronary artery with unstable angina pectoris (principal); I10 Essential (primary) hypertension; E78.5 Hyperlipidemia, unspecified; K21.9 Gastro-esophageal reflux disease without esophagitis; J44.9 Chronic obstructive pulmonary disease, unspecified; E66.9 Obesity, unspecified; Z68.31 Body mass index [BMI] 31.0-31.9, adult; M54.5 Low back pain; I25.2 Old myocardial infarction; F17.210 Nicotine dependence, cigarettes, uncomplicated; Z79.82 Long term (current) use of aspirin; Z79.899 Other long term (current) drug therapy; Z95.818 Presence of other cardiac implants and grafts

== ENCOUNTER 2020-08-04 09:51 | Inpatient (IN) | payer OTHER ==
[~2020-08-04] VITALS: Ht 185.4 cm; Wt 106.6 kg
[~2020-08-04 09:51] MED LIST changes: +HYDROCHLOROTHIA25 M2 PO; +IMDUR 30 MG TAB30 M1 PO; +LIPITOR40 MG PO; +METOPROLOL SUCC25 M1 PO; +NORVASC10 MG PO
[2020-08-04 09:53] VITALS: BP 120/63
[2020-08-04 10:16] LABS: ABSOLUTE BASOPHILS 0.1 thou/uL (0.0-0.2); ABSOLUTE EOSINOPHILS 0.2 thou/uL (0.0-0.7); ABSOLUTE LYMPHOCYTES 2.7 thou/uL (0.8-5.3); ABSOLUTE MONOCYTES 1.1 thou/uL (0.0-1.2); ABSOLUTE NEUTROPHILS 5.1 thou/uL (1.6-8.1); EOSINOPHILS 2.4 %; HEMATOCRIT 42.6 % (42.0-52.0); LYMPHOCYTES 29.8 %; MCH 32.6 pg (26.0-34.0); MCHC 35.2 g/dL (28.0-37.0); MCV 92.8 fL (80.0-100.0); MONOCYTES 11.6 %; MPV 8.7 fl. (7.2-11.1); NUCLEATED RBCS 0 /100WBC; PLATELET COUNT* 268 thou/uL (150-400); POLYS 55.2 %; RBC 4.59 mil/uL (4.50-6.00); RDW-CV 13.2 % (10.5-14.5); WBC 9.2 thou/uL (4.0-11.0)
[2020-08-04 10:26] LABS: CALCIUM 8.9 mg/dL (8.5-10.1); CREATININE 1.2 mg/dL (0.6-1.3); POTASSIUM 3.9 mmol/L (3.5-5.1)
[2020-08-04 10:34] LABS: ALBUMIN 3.8 g/dL (3.4-5.0); MAGNESIUM 1.9 mg/dL (1.8-2.4); TOTAL BILIRUBIN 0.8 mg/dL (<0.1-1.0); TOTAL PROTEIN 7.5 g/dL (6.4-8.2)
[2020-08-04 10:50] LABS: PROTIME 10.3 Seconds (9.20-11.50)
[2020-08-04 13:12] VITALS: BP 118/58
[2020-08-04 14:00] VITALS: BP 115/59
--- NOTE | 2020-08-04 15:06 | 2DMMODE ---
[place] [address] 2 D/M-MODE ECHOCARDIOGRAM Name: ANNMARIE MUNIZ Room: [address] M.R.#: [id number] Admission: 08/04/20 Attend Phys: Bernice Finley, Discharge: Date of : 56 Date of Service: 08/04/20 1506 Report #: [id number] THIS REPORT FOR: cc: Holden Miller Russell J. DO Biggs, F. Douglas MD [facility] ~ APPROVED REPORT Study performed: 08/04/2020 14:03:20 EXAM: Comprehensive 2D, Doppler, and color-flow Echocardiogram Patient Location: Bedside BSA: 2.31 HR: 60 bpm BP: 118/58 mmHg Other Information Study Quality: Adequate Indications Chest Pain 2D Dimensions IVSd: 12.49 (7-11mm) LVOT Diam: 19.13 (18-24mm) LVDd: 53.52 mm PWd: 14.14 (7-11mm) Ascending Ao: 38.16 (22-36mm) LVDs: 29.85 (25-40mm) Aortic Root: 34.90 mm Volumes Left Atrial Volume (Systole) LA ESV Index: 21.00 mL/m2 Aortic Valve AoV Peak Luciano.: 1.58 m/s AO Peak Gr.: 9.99 mmHg LVOT Max P.92 mmHg AO Mean Gr.: 4.87 mmHg LVOT Mean P.88 mmHg LVOT Max V: 1.32 m/s AO V2 VTI: 30.15 cm LVOT Mean V: 0.76 m/s RAJNI (VTI): 2.52 cm2 LVOT V1 VTI: 26.49 cm Mitral Valve E/A Ratio: 0.97 [place] [address] 2 D/M-MODE ECHOCARDIOGRAM Name: ANNMARIE MUNIZ Room: [address]R.#: [id number] Admission: 08/04/20 Attend Phys: Bernice Finley, Discharge: Date of : 56 Date of Service: 08/04/20 1506 Report #: [id number] MV Decel. Time: 203.05 ms MV E Max Luciano.: 0.82 m/s MV PHT: 58.88 ms MVA (PHT): 3.74 cm2 TDI E/Lateral E': 5.86 E/Medial E': 5.86 Medial E' Luciano.: 0.14 m/s Lateral E' Luciano.: 0.14 m/s Pulmonary Valve PV Peak Luciano.: 1.14 m/s PV Peak Gr.: 5.19 mmHg Tricuspid Valve RAP Estimate: 5.00 mmHg TR Peak Gr.: 11.58 mmHg RVSP: 16.58 mmHg PA Pressure: 16.58 mmHg Left Ventricle The left ventricle is normal size. There is normal LV segmental wall motion. There is normal left ventricular wall thickness. Left ventricular systolic function is normal. The left ventricular ejection fraction is within the normal range. LVEF is 60-65%. The left ventricular diastolic function is normal. Right Ventricle Right ventricle is borderline dilated. The right ventricular systolic function is normal. Atria The left atrium size is normal. The right atrium size is normal. Aortic Valve Aortic valve leaflets are moderately thickened. No aortic regurgitation is present. There is no aortic valvular stenosis. Mitral Valve The mitral valve is normal in structure. There is no mitral valve regurgitation noted. No evidence of mitral valve stenosis. Tricuspid Valve The tricuspid valve is normal in structure. Trace [place] [address] 2 D/M-MODE ECHOCARDIOGRAM Name: ANNMARIE MUNIZ Room: [address]#: [id number] Admission: 08/04/20 Attend Phys: Bernice Finley, Discharge: Date of : 56 Date of Service: 08/04/20 1506 Report #: [id number] Pulmonic Valve The pulmonary valve is normal in structure. There is no pulmonic valvular regurgitation. Great Vessels The aortic root is normal in size. IVC is normal in size and collapses >50% with inspiration. Pericardium There is no pericardial effusion. <Conclusion> LVEF is 60-65%. The left ventricular diastolic function is normal. The left ventricle is normal size. There is normal left ventricular wall thickness. There is normal LV segmental wall motion. Aortic valve leaflets are moderately thickened. There is no aortic valvular stenosis. No aortic regurgitation is present. There is no mitral valve regurgitation noted. Trace tricuspid regurgitation. There is no pulmonic valvular regurgitation. <ELECTRONICALLY SIGNED> By: Madelin Pandey MD, FACC 08/04/20 1506 1506 1506 Madelin Pandey MD, FACC /INF
[2020-08-04 16:47] LABS: CALCIUM 8.9 mg/dL (8.5-10.1); CREATININE 1.4 mg/dL (0.6-1.3); POTASSIUM 4.5 mmol/L (3.5-5.1)
--- NOTE | 2020-08-04 17:12 | EKG ---
[place] [address] ELECTROCARDIOGRAM REPORT Name: ANNMARIE MUNIZ Room: [address] M.R.#: [id number] Admission: 08/04/20 Attend Phys: Bernice Finley, Discharge: Date of : 56 Date of Service: 08/04/20 0958 Report #: [id number] THIS REPORT FOR: //name// [facility] ED Test Date: 2020-08-04 Test Time: 09:58:20 Pat Name: ANNMARIE MUNIZ Department: Room: [facility] Gender: M Quantitative Software Engineer: LIVIER : 1960 Requested By: Hero Car Order Number: [id number] MD: Vel Pandey Measurements Intervals [place] Rate: 57 P: 75 DE: 149 QRS: 61 QRSD: 101 T: 60 QT: 436 QTc: 425 Interpretive Statements Sinus rhythm Baseline wander in lead(s) II,III,aVR,aVF Compared to ECG 06/16/2020 11:24:31 No significant changes Electronically Signed On 08-04-2020 17:12:07 CDT by Vel Pandey [email or web address] <ELECTRONICALLY SIGNED> By: Madelin Pandey MD, FACC 08/04/20 1712 Madelin Pandey MD, FACC /EPI
[2020-08-04 20:00] VITALS: BP 107/63
[2020-08-05] VITALS (16 sets, daily range): BP systolic 101–125; BP diastolic 60–80
[2020-08-05 04:21] LABS: HEMATOCRIT 40.4 % (42.0-52.0); HEMOGLOBIN 13.8 gm/dL (14.0-18.0); MCH 31.8 pg (26.0-34.0); MCHC 34.2 g/dL (28.0-37.0); MCV 93.2 fL (80.0-100.0); MPV 8.5 fl. (7.2-11.1); RBC 4.34 mil/uL (4.50-6.00); RDW-CV 13.2 % (10.5-14.5); WBC 9.9 thou/uL (4.0-11.0)
[2020-08-05 04:30] LABS: PROTIME 10.3 Seconds (9.20-11.50)
[2020-08-05 04:46] LABS: ALBUMIN 3.3 g/dL (3.4-5.0); ALKALINE PHOSPHATASE 98 U/L (46-116); ANION GAP 6 mmol/L (7-16); BUN 14 mg/dL (7-18); CALCIUM 8.6 mg/dL (8.5-10.1); CHLORIDE 103 mmol/L (98-107); CHOLESTEROL 131 mg/dL (<200); CO2 29 mmol/L (21-32); CREATININE 1.5 mg/dL (0.6-1.3); GLUCOSE 144 mg/dL (70-99); HDL CHOLESTEROL 53 mg/dL (>40); LDL CHOLESTEROL 56 mg/dL (<100); POTASSIUM 3.9 mmol/L (3.5-5.1); SERUM ASSESSMENT Clear; SGOT 35 U/L (15-37); SGPT 73 U/L (30-65); SODIUM 138 mmol/L (136-145); TC:HDL 2.5 Ratio (Not establshd); TOTAL BILIRUBIN 0.8 mg/dL (<0.1-1.0); TOTAL PROTEIN 6.6 g/dL (6.4-8.2); TRIGLYCERIDE 111 mg/dL (<150); TROPONIN-I LEVEL <0.06 ng/mL (<0.06); VLDL 22 mg/dL (<40)
[2020-08-05 05:07] LABS: GLYCOHEMOGLOBIN (HGB A1C) 5.8 % (4.8-5.6)
--- NOTE | 2020-08-05 16:07 | CARD ---
[address] [address] CARDIAC CATH REPORT Name: ANNMARIE MUNIZ Room: [address] IN [facility]#: [id number] Admission: 08/05/20 Attend Phys: Bernice Finley MD Discharge: Date of : 56 Report #: [id number] THIS REPORT FOR: //name// cc: Holden Miller Russell J. DO ~ APPROVED REPORT Study performed: 08/05/2020 10:54:58 Patient Details Patient Status: In-Patient Room #: The patient is a 60 year-old male Event Personnel Buster Hanson Banquet Houseperson, Lavonne Aguirre RN Field Service Representative, Cassandra Hayes RTR Monitor, Antionette Odonnell RTR Scrub, Khadijah Huitron RN Field Service Representative Procedures Performed Art Access - R femoral artery, Left Heart Cath w/or w/o Coronaries LHC, NIKUNJ Place w/wo Plasty Single CIRC , Hemostasis w/ Angioseal Indication Unstable angina Risk Factors Hypercholesterolemia, Hypertension Previous Procedures/Diagnoses Previous PCI Admission/Lab Medications/Medications given during procedure Angiomax IV 16 ml, Angiomax IV 34.75 mg per kg, Angiomax IV 4 ml, Plavix PO 600 mg, Aspirin PO 162 mg Procedure Narrative The patient was brought electively to the Cardiac Catheterization Laboratory and was prepped and draped in a sterile manner. The right femoral was infiltrated with 1% Lidocaine subcutaneous anesthesia. A 6F [place] sheath was inserted into the right femoral artery. Coronary angiography was performed using coronary diagnostic catheters. The right coronary system was accessed and visualized with a 6F JR4 catheter. The left coronary system was accessed and visualized with a 6F JL4 catheter. The [place] [address] CARDIAC CATH REPORT Name: ANNMARIE MUNIZ Room: [address] [place] [facility]#: [id number] Admission: 08/05/20 Attend Phys: Bernice Finley MD Discharge: Date of : 56 Report #: [id number] and visualized with a 6F Straight Pigtail catheter. Left ventricular/Aortic Valve gradient assessed via catheter pullback. Left ventriculogram was performed in SALAS projection. Pre-demployment femoral angiogram was performed . Closure device was deployed with a 6 Fr Angioseal STS. The patient tolerated the procedure well and there were no complications associated with the procedure. There was no hematoma. Intraoperative Conscious Sedation Sedation start time: 12:06 Case end Time: 13:43 Fentanyl 125 mcg Versed 5 mg Fluoro Time: 19.4 minutes Dose: DAP 75660.2 cGycm2 1766 mGy Contrast Type and Amount: Visipaque 430 ml Coronary Angiography The patient's coronary anatomy is right dominant. Diagnostic Cath Left Main 0% narrowing LAD 30% proximal mid LAD narrowing with 40% ostial and 50% mid first diagonal narrowing Circumflex Moderate size nondominant vessel of tandem 70 and 80% mid vessel stenosis Right Coronary Large dominant vessel with widely patent proximal and mid vessel stents with 30% mid vessel narrowing Left Ventriculography The left ventricle is normal in size with normal contractility. The left ventricular ejection fraction is estimated to be 55-60%. Left ventricular wall motion abnormalities are not present. There is no mitral insufficiency. Hemodynamics The aortic pressure is 90/45 mmHg with a mean of 53 mmHg. The left ventricular pressure is 91/-6 mmHg with a mean of mmHg. The left ventricular end diastolic pressure is 1 mmHg. There was no gradient across the aortic valve upon pullback. PCI Technique Lesion Anticoagulation was achieved with Angiomax. Patient was preloaded with Angiomax IV 16 ml. Percutaneous coronary intervention was performed on the mid circumflex artery segment. The lesion stenosis prior to intervention was 80% with LUPIS 3 flow. A 6F XB LAD 3.5 [place] [address] CARDIAC CATH REPORT Name: ANNMARIE MUNIZ Room: [address] [place] [facility]#: [id number] Admission: 08/05/20 Attend Phys: Bernice Finley MD Discharge: Date of : 56 Report #: [id number] Catheter was used to engage the left main ostium. A BMW 190cm Interventional Guidewire was used to cross the lesion. BALLOON DILATION A Balloon catheter Trek RX 2.25 X 12 was inserted and inflated up to 14.00atm for 15seconds. Additional Inflation: 14.00atm for 8seconds. STENT DEPLOYMENT A drug-eluting stent [place] RX Stent 2.0X26mm, 2.5x8 mariel was inserted and inflated up to 15.00, 12atm for 14seconds. Additional Inflation: 18.00atm for 12seconds. Additional Inflation: 20.00atm for 11seconds. POST STENT DEPLOYMENT BALLOON DILATION A Balloon catheter NC Trek RX 2.5 X 12 was inserted and inflated up to 16.00atm for 17seconds. Additional Inflation: 18.00atm for 9seconds. Additional Inflation: 20.00atm for 12seconds. Final angiography reveals 0 % stenosis with LUPIS 3 flow. POST STENT DEPLOYMENT BALLOON DILATION A Balloon catheter NC [place] 2.75x12 was inserted and inflated up to 14atm for 11seconds. Additional Inflation: 15atm for 12seconds. Additional Inflation: 15atm for 9seconds. Conclusion 1. Significant coronary artery disease characterized by the following: A tandem 70 and 80% mid circumflex stenoses B 30% proximal and mid LAD narrowing with 40% ostial and 50% mid first diagonal narrowing C large dominant right coronary artery with widely patent proximal and mid vessel stents with 30% mid vessel narrowing 2. Normal left-sided hemodynamic study 3. Normal left ventricular systolic function, estimated ejection fraction being 55 - 60% 4. Successful PCI with deployment of 2 drug-eluting stents covering the tandem 70 and 80% mid circumflex stenoses with 0% residual narrowing and LUPIS-3 flow to the distal vessel [address] [address] CARDIAC CATH REPORT Name: ANNMARIE MUNIZ Room: M.219-P ADM IN M.R.#: [id number] Admission: 08/05/20 Attend Phys: Bernice Finley MD Discharge: Date of : 56 Report #: [id number] Recommendations Daily ASA with Plavix for at least one year Cardiac Risk Reduction Program Medications Administered Aspirin (any) Clopidogrel Diagnostic Cath Approved by: Buster Hanson MD Date/Time: 08/05/2020 16:05:11 <ELECTRONICALLY SIGNED> By: Buster Hanson MD, FACC 08/05/20 1607 1607 1607Jovaibhav Hanson MD, FACC /INF
[2020-08-06] VITALS: BP 98/61
[2020-08-06 04:00] VITALS: BP 124/74
[2020-08-06 04:45] LABS: HEMATOCRIT 37.7 % (42.0-52.0); HEMOGLOBIN 12.9 gm/dL (14.0-18.0); MCH 31.8 pg (26.0-34.0); MCHC 34.2 g/dL (28.0-37.0); MCV 93.1 fL (80.0-100.0); MPV 8.9 fl. (7.2-11.1); RBC 4.05 mil/uL (4.50-6.00); RDW-CV 13.1 % (10.5-14.5); WBC 12.6 thou/uL (4.0-11.0)
[2020-08-06 05:22] LABS: CALCIUM 8.2 mg/dL (8.5-10.1); CREATININE 1.1 mg/dL (0.6-1.3); POTASSIUM 3.9 mmol/L (3.5-5.1)
[2020-08-06 08:00] VITALS: BP 116/64
[2020-08-06] MEDS ORDERED: METOPROLOL SUCC25 M1 PO (08:12)
[2020-08-06] MEDS ORDERED: CLOPIDOGREL75 MG PO (08:12)
[2020-08-06 10:58] VITALS: BP 116/64
[2020-08-06 11:03] VITALS: BP 116/64
[2020-08-06 11:05] VITALS: BP 116/64
--- NOTE | 2020-08-09 08:02 | CON ---
[address] [address] CONSULTATION Name: YARIEL MUNIZD EMLIY Room: [address] IN M.R.#: [id number] Admission: 08/05/20 Attend Phys: Bernice Finley MD Discharge: 08/06/20 Date of : 56 Report #: [id number] THIS REPORT FOR: //name// cc: Holden Miller Russell J. DO ~ CARDIOLOGY CONSULTATION HISTORY OF PRESENT ILLNESS: I was asked by the Emergency Room doctor and the hospitalist, Dr. Bernice Finley, the Emergency Room doctor was Dr. Car, to see this 60-year-old white male in Cardiology consultation for evaluation and treatment of chest pain. This man has a long history of coronary artery disease. He has had multiple coronary stents. I believe his first stent was here on 11/28/2018, that was an LAD stent placed by Dr. Hanson. He had what he thinks was an NJ sometime before that, he is not sure when, he says he was told it was a silent NJ. On 01/14/2019, he had a mid circumflex stent done here again by Dr. Hanson. In 04/2019, he had a total occlusion of what sounds like his right coronary artery done at [facility]. There was apparently a problem with that procedure and he had what he called reperfusion issues. He came to the ER here on 06/15/2020, just 7 weeks ago, and came here with chest pain. He is followed by a java lead at and did not want to be cathed here, but wanted to be cathed at . He was sent over to and he tells me his insurance denied cardiac catheterization and insisted on him having a nuclear stress test. The nuclear stress test was done, it was a 2-day study and after the first part of the 2-day study, he was told that the study was negative and he was sent home. He remained free of symptoms until this morning at 9:00 a.m., when he developed his usual substernal chest pain. It is a dull pain, it was an 8 on a scale of 10. It was associated with diaphoresis, but no nausea, vomiting or shortness of breath. The pain is over his whole anterior chest, generally speaking, it did not radiate. The pain altogether lasted an hour and a half or more. The pain was quite severe and he came to the Emergency Room. He got at home, he took extra aspirin and he took a couple of nitroglycerins. After an hour and a half here after getting more nitroglycerin and I believe more aspirin, his pain gradually diminished and it currently is less than one-half. He says there is a minimal discomfort there, but not much. He is actually very comfortable now, he says. His initial troponin was negative. His EKG shows mild sinus bradycardia, heart rate is 57 and it is essentially a normal EKG. Although, there are very small Q-waves in the inferior and lateral leads, but there are no acute ST changes. His chest x-ray shows no acute cardiopulmonary process. His NT-proBNP was only 40. A second troponin is not back, I believe the first one was from 10:00 this morning. PAST MEDICAL HISTORY: Includes essential hypertension and hypercholesterolemia as well as chronic obstructive pulmonary disease. He still smokes, but is smoking less than a pack a week. I told him no uncertain terms today to stop smoking today. HOME MEDICATIONS: Include amlodipine 10 mg daily, aspirin 81 mg chewable daily, [address] [address] CONSULTATION Name: ANNMARIE MUNIZ Room: [address]#: [id number] Admission: 08/05/20 Attend Phys: Bernice Finley MD Discharge: 08/06/20 Date of : 56 Report #: [id number] atorvastatin 40 mg daily, hydrochlorothiazide 25 mg daily, isosorbide mononitrate 30 mg daily, losartan 50 mg b.i.d., metoprolol succinate 25 mg daily, montelukast 10 mg daily, p.r.n. nitroglycerin, omeprazole 40 mg daily and albuterol q.4-6 hours p.r.n. He is also on Plavix 75 mg daily, he tells me. SOCIAL HISTORY: Drinks only socially, smokes as above. Does not do illegal drugs. I believe he is . ALLERGIES: He has no known drug allergies. FAMILY HISTORY: Unremarkable. REVIEW OF SYSTEMS: Negative except as per the history of present illness. Please see our review of systems form for details and negatives, some 45 different negative complaints were elicited. PHYSICAL EXAMINATION: GENERAL: He presents as well-developed, well-nourished white male in no acute distress. VITAL SIGNS: His pulse was 58 and regular, respirations 18 and regular, temperature is 98 degrees, blood pressure was 100/60. HEENT: His head was atraumatic. Eyes clear. NECK: Supple. There is no jugular venous distention or hepatojugular reflux. Thyroid is not enlarged. There is no adenopathy. SKIN: Warm and dry. Mucous membranes are moist. LUNGS: Clear to auscultation and percussion. HEART: Revealed normal first and second heart sound. There is soft S4. There is no S3. There are no murmurs, rubs, thrills, heaves or gallops. PMI is nondisplaced. ABDOMEN: Soft, flat and nontender. No palpable masses, no organomegaly. IMPRESSION: 1. Acute coronary syndrome. 2. Coronary artery disease. 3. Status post coronary stents x 3. 4. Essential hypertension. 5. Hypercholesterolemia. 6. Chronic obstructive pulmonary disease. 7. Cigarette smoking. 8. Gastroesophageal reflux disease. RECOMMENDATION: I believe this man should have cardiac catheterization and coronary angiography. He should be treated aggressively for his acute coronary syndrome. Please see my orders. I have discussed his situation with Dr. Hanson, who has [place] [address] CONSULTATION Name: ANNMARIE MUNIZ Room: [address]#: [id number] Admission: 08/05/20 Attend Phys: Bernice Finley MD Discharge: 08/06/20 Date of : 56 Report #: [id number] Thank you very much for asking me to see this patient. If there are any questions, please feel free to contact me. <ELECTRONICALLY SIGNED> By: Madelin Pandey MD, [facility] 08/09/20 0802 1322 [id number]. Vel Pandey MD, CARLA /nt
== END 2020-08-06 11:19 | disposition home or self-care (01) | DRG 246 ==
LOC: M.ERS 09:51 → M.TBA-ER 11:22 → M.2W 13:20
PROVIDERS: Emergency Medicine Emergency Medical Services; Registered Nurse; ADMIT Internal Medicine; ATTEND Internal Medicine
PROC: 027035Z Dilation of Coronary Artery, One Artery with Two Drug-eluting Intraluminal Devices, Percutaneous Approach (ICD-10-PCS; principal; 2020-08-05)
PROC: B215YZZ Fluoroscopy of Left Heart using Other Contrast (ICD-10-PCS; principal; 2020-08-05)
PROC: B211YZZ Fluoroscopy of Multiple Coronary Arteries using Other Contrast (ICD-10-PCS; principal; 2020-08-05)
PROC: 4A023N7 Measurement of Cardiac Sampling and Pressure, Left Heart, Percutaneous Approach (ICD-10-PCS; principal; 2020-08-05)
DX: I25.119 Atherosclerotic heart disease of native coronary artery with unspecified angina pectoris (principal); N17.0 Acute kidney failure with tubular necrosis; I24.9 Acute ischemic heart disease, unspecified; K21.9 Gastro-esophageal reflux disease without esophagitis; J44.9 Chronic obstructive pulmonary disease, unspecified; G89.29 Other chronic pain; M54.9 Dorsalgia, unspecified; I10 Essential (primary) hypertension; I25.10 Atherosclerotic heart disease of native coronary artery without angina pectoris; E66.9 Obesity, unspecified; I95.9 Hypotension, unspecified; E78.00 Pure hypercholesterolemia, unspecified; F17.210 Nicotine dependence, cigarettes, uncomplicated; Z20.828 Contact with and (suspected) exposure to other viral communicable diseases; I25.2 Old myocardial infarction; Z90.49 Acquired absence of other specified parts of digestive tract; Z95.5 Presence of coronary angioplasty implant and graft; Z79.82 Long term (current) use of aspirin; Z79.899 Other long term (current) drug therapy; Z68.31 Body mass index [BMI] 31.0-31.9, adult

== ENCOUNTER → 2021-01-20 | Outpatient (CLI) | payer OTHER ==
[~2021-01-20] VITALS: Ht 185.4 cm; Wt 110.7 kg
[~2021-01-20] MED LIST changes: +CLOPIDOGREL75 MG PO; +EFFER-K 10 MEQ10 ME1 PO; +LASIX 40 MG TAB40 MG PO; +RANOLAZINE ER500 MG PO; +TOPROL XL25 MG PO
[2021-01-20 08:00] VITALS: BP 153/71
[2021-01-20 08:23] LABS: HEMATOCRIT 44.1 % (42.0-52.0); HEMOGLOBIN 14.9 gm/dL (14.0-18.0); MCH 31.7 pg (26.0-34.0); MCHC 33.8 g/dL (28.0-37.0); MCV 93.7 fL (80.0-100.0); MPV 8.5 fl. (7.2-11.1); RBC 4.71 mil/uL (4.50-6.00); RDW-CV 12.5 % (10.5-14.5); WBC 11.8 thou/uL (4.0-11.0)
[2021-01-20 08:34] LABS: ANION GAP 7 mmol/L (7-16); BUN 13 mg/dL (7-18); CALCIUM 9.2 mg/dL (8.5-10.1); CHLORIDE 100 mmol/L (98-107); CO2 30 mmol/L (21-32); CREATININE 1.2 mg/dL (0.6-1.3); GLUCOSE 126 mg/dL (70-99); POTASSIUM 3.3 mmol/L (3.5-5.1); SODIUM 137 mmol/L (136-145)
[2021-01-20 08:39] LABS: ALKALINE PHOSPHATASE 94 U/L (46-116); CHOLESTEROL 171 mg/dL (<200); HDL CHOLESTEROL 63 mg/dL (>40); LDL CHOLESTEROL 88 mg/dL (<100); SERUM ASSESSMENT Clear; SGOT 6 U/L (15-37); SGPT 22 U/L (30-65); TC:HDL 2.7 Ratio (Not establshd); TOTAL BILIRUBIN 0.7 mg/dL (<0.1-1.0); TOTAL PROTEIN 8.3 g/dL (6.4-8.2); TRIGLYCERIDE 100 mg/dL (<150); VLDL 20 mg/dL (<40)
[2021-01-20 08:48] LABS: APTT 24.9 Seconds (25.0-31.3); PROTIME 10.2 Seconds (9.20-11.50)
--- NOTE | 2021-01-20 09:57 | EKG ---
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
[2021-01-20 10:02] VITALS: BP 136/73
--- NOTE | 2021-01-20 12:38 | CARD ---
[address] [address] CARDIAC CATH REPORT Name: ANNMARIE MUNIZ Room: [facility] RODRIGUEZ Lb#: [id number] Admission: 01/20/21 Attend Phys: Marco A Hogan MD, F Discharge: Date of : 56 Report #: [id number] THIS REPORT FOR: cc: Holden Miller Russell J. DO Blick,Marco A Melendez MD [facility] ~ APPROVED REPORT Study performed: 01/20/2021 08:55:18 Patient Details Patient Status: Out-Patient Room #: The patient is a 60 year-old male Event Personnel Alex Cabezas RTR Monitor, Cassandra Hayes RTR Scrub, Khadijah Huitron RN RN, Marco A Hogan Machine Sneller Procedures Performed Left Heart Cath w/or w/o Coronaries [id number] [facility] Hemostasis with Hemoband Indication Dyspnea, Chest pain Risk Factors Arterial Hypertension, Hypercholesterolemia, Tobacco History () Previous Procedures/Diagnoses Previous PCI Admission/Lab Medications/Medications given during procedure Heparin Unfract., Midazolam (Versed) IV 2 mg, Fentanyl IV 25 mcg, Lidocaine Subcut 5 ml, Potassium Chloride PO 20 mEq, Nitroglycerin IA 200 mcg, Verapamil IV 1.5 mg, Midazolam (Versed) IV 1 mg, Heparin IV 5000 units Procedure Narrative The patient was brought electively to the Cardiac Catheterization Laboratory and was prepped and draped in a sterile manner. The right wrist was infiltrated with 2% Lidocaine subcutaneous anesthesia. A Slender Glidesheath sheath was inserted into the right radial artery. Coronary angiography was performed [place] [address] CARDIAC CATH REPORT Name: CRISTYANNMARIE Room: [facility]#: [id number] Admission: 01/20/21 Attend Phys: Marco A Hogan MD, F Discharge: Date of : 56 Report #: [id number] catheters. The right coronary system was accessed and visualized with a Diagnostic JR4 6Fr catheter. The left coronary system was accessed and visualized with a Diagnostic JL4 6Fr catheter. The left ventricle was accessed and visualized with a Diagnostic Pigtail 6Fr catheter. Left ventricular/Aortic Valve gradient assessed via catheter pullback. Left ventriculogram was performed in SALAS projection. Closure device was deployed with a 6 Fr vascband. The patient tolerated the procedure well and there were no complications associated with the procedure. There was no hematoma. Intraoperative Conscious Sedation Sedation start time: 904 Case end Time: 932 Fentanyl 25 mcg Versed 3 mg Fluoro Time: 3.9 minutes Dose: DAP 87198 cGycm2 1076.90 mGy Contrast Type and Amount: Omnipaque 100 ml Coronary Angiography The patient's coronary anatomy is right dominant. Diagnostic Cath Left Main 0% stenosis LAD Stent in the proximal LAD had 0% restenosis. 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 Left ventricular wall motion abnormalities are present. There is no mitral insufficiency. mild inferior wall hypokinesis noted Hemodynamics The aortic pressure is 113/57 mmHg with a mean of 35 mmHg. The left ventricular pressure is 115/10 mmHg with a mean of mmHg. The left ventricular end diastolic pressure is 12 mmHg. There was no gradient across the aortic valve upon pullback. Pullback from the left ventricle to the aorta revealed no gradient across the [place] [address] CARDIAC CATH REPORT Name: ANNMARIE MUNIZ EMILY Room: [facility]#: [id number] Admission: 01/20/21 Attend Phys: Marco A Hogan MD, F Discharge: Date of : 56 Report #: [id number] 1. no restenosis noted of stents in the LAD, circumflex, and RCA 2. 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 LVEF 55-60% Recommendations Aggressive Medical Therapy <ELECTRONICALLY SIGNED> By: Marco A Hogan MD, [facility] 01/20/21 1238 1238 1238Dacarmela Hogan MD, FACC /INF
== END ==
LOC: M.CL 07:36
PROVIDERS: ATTEND Internal Medicine Cardiovascular Disease
DX: R07.9 Chest pain, unspecified (principal); R06.00 Dyspnea, unspecified; I25.10 Atherosclerotic heart disease of native coronary artery without angina pectoris; J44.9 Chronic obstructive pulmonary disease, unspecified; K21.9 Gastro-esophageal reflux disease without esophagitis; I10 Essential (primary) hypertension; E66.9 Obesity, unspecified; I73.9 Peripheral vascular disease, unspecified; E78.49 Other hyperlipidemia; F17.201 Nicotine dependence, unspecified, in remission; Z79.899 Other long term (current) drug therapy; Z98.890 Other specified postprocedural states; Z72.89 Other problems related to lifestyle; Z79.82 Long term (current) use of aspirin; Z82.49 Family history of ischemic heart disease and other diseases of the circulatory system

== ENCOUNTER → 2021-04-19 | Outpatient (CLI) | payer OTHER | LOC: M.PC 08:00 | PROVIDERS: ATTEND Physical Medicine & Rehabilitation | DX: M47.26 Other spondylosis with radiculopathy, lumbar region (principal); M79.662 Pain in left lower leg; Z79.891 Long term (current) use of opiate analgesic; Z79.899 Other long term (current) drug therapy ==

== ENCOUNTER → 2021-06-07 | Outpatient (CLI) | payer OTHER | LOC: M.PC 10:15 | PROVIDERS: ATTEND Physical Medicine & Rehabilitation | DX: M47.26 Other spondylosis with radiculopathy, lumbar region (principal); M54.5 Low back pain; M79.605 Pain in left leg ==